=== PATIENT | female | born 1970 | race Caucasian/White ===

== ENCOUNTER → 2024-03-27 10:03 | Outpatient (REF) | payer OTHER, SELFPAY | LOC: WDC 10:03 | PROVIDERS: ATTENDING PHYSICIAN Registered Nurse | DX: Z12.31 Encounter for screening mammogram for malignant neoplasm of breast (principal) | CPT/HCPCS: 77063; 77067 ==

== ENCOUNTER → 2025-03-08 09:49 | Outpatient (REF) | payer OTHER, SELFPAY | LOC: WDC 09:49 | PROVIDERS: ATTENDING PHYSICIAN Nurse Practitioner Obstetrics & Gynecology; FAMILY PHYSICIAN Registered Nurse | DX: N63.31 Unspecified lump in axillary tail of the right breast (principal); R22.31 Localized swelling, mass and lump, right upper limb | CPT/HCPCS: 76642; 77062; 77066 ==